=== PATIENT | male | born 1965 | race African-American/Black ===

== ENCOUNTER 2018-01-15 17:21 | Emergency (ER) | payer SELFPAY ==
[~2018-01-15] VITALS: Ht 185.4 cm; Wt 95.0 kg
[2018-01-15] MEDS ORDERED: BACTROBAN TOP (18:23)
[2018-01-15 18:35] VITALS: BP 126/71
== END 2018-01-15 18:36 | disposition home or self-care (01) | DRG 605 ==
LOC: ED 17:21
DX: S00.451A Superficial foreign body of right ear, initial encounter (principal); X58.XXXA Exposure to other specified factors, initial encounter

== ENCOUNTER 2018-10-09 03:44 | Emergency (ER) | payer SELFPAY ==
[~2018-10-09] VITALS: Ht 185.4 cm; Wt 89.5 kg
[~2018-10-09 03:44] MED LIST: BACTROBAN TOP
[2018-10-09 04:47] LABS: HEMATOCRIT 39.6 % (39.0-50.0); HEMOGLOBIN 13.2 g/dl (14.0-18.0); IMMATURE GRANULOCYTES 0.4 % (0.0-5.0); MEAN CELL VOLUME 90.2 fL CALC (80.0-100.0); MEAN CORPUSCULAR HGB 30.1 pG CALC (26.0-32.0); MEAN CORPUSCULAR HGB CONC 33.3 g/L CALC (32.0-36.0); NEUT# 5.1 thou/uL (1.82-7.42); RED BLOOD COUNT 4.39 mill/uL (4.70-6.10); RED CELL DISTRI WIDTH 13.9 % (11.5-15.5)
[2018-10-09 04:57] LABS: BARBITURATES NEGATIVE (NEGATIVE); COCAINE POSITIVE (NEGATIVE); METHADONE NEGATIVE (NEGATIVE); OXCYCODONE NEGATIVE (NEGATIVE); TETRAHYDROCANNABIONOL POSITIVE (NEGATIVE); TRICYLIC ANTIDEPRESSANTS NEGATIVE (NEGATIVE)
[2018-10-09 05:07] LABS: ALBUMIN 3.6 g/dL (3.2-5.0); ALKALINE PHOSPHATASE 97 u/l (38-126); ANION GAP 11 (6-22 (CALC)); BILIRUBIN, TOTAL 0.2 mg/dL (0.0-1.4); BUN 13 mg/dL (9-20); BUN/CREATININE RATIO 12 (12-20 (CALC)); CARBON DIOXIDE 26 mmol/l (22-30); CHLORIDE 107 mmol/l (95-108); CREATININE 1.1 mg/dL (0.7-1.3); GFR > 60 ML/MIN (>=60 (CALC)); GFR FOR AFR.AMER. > 60 ML/MIN (>=60 (CALC)); SGOT/AST 19 u/l (17-59); SODIUM 139 mmol/l (137-146); TOTAL PROTEIN 6.6 g/dL (6.3-8.2)
[2018-10-09 06:06] VITALS: BP 110/62
== END 2018-10-09 06:06 | disposition home or self-care (01) | DRG 103 ==
LOC: ED 03:44
PROVIDERS: Emergency Medicine
DX: R51 Headache (principal); F14.10 Cocaine abuse, uncomplicated; F17.210 Nicotine dependence, cigarettes, uncomplicated

== ENCOUNTER 2018-11-08 07:58 | Emergency (ER) | payer OTHER ==
[~2018-11-08] VITALS: Ht 188 cm; Wt 95.4 kg
[2018-11-08] MEDS ORDERED: VOLTAREN1%GEL TOP (09:20)
[2018-11-08 09:35] VITALS: BP 120/77
== END 2018-11-08 09:35 | disposition home or self-care (01) | DRG 563 ==
LOC: ED 07:58
DX: S39.012A Strain of muscle, fascia and tendon of lower back, initial encounter (principal); S29.012A Strain of muscle and tendon of back wall of thorax, initial encounter; S46.912A Strain of unspecified muscle, fascia and tendon at shoulder and upper arm level, left arm, initial encounter; F17.210 Nicotine dependence, cigarettes, uncomplicated; V43.52XA Car driver injured in collision with other type car in traffic accident, initial encounter

== ENCOUNTER 2019-02-17 20:00 | Emergency (ER) | payer SELFPAY ==
[~2019-02-17] VITALS: Ht 188 cm; Wt 96.8 kg
[~2019-02-17 20:00] MED LIST changes: +VOLTAREN1%GEL TOP
[2019-02-17] MEDS ORDERED: SLEEPING PILL (20:16)
[2019-02-17] MEDS ORDERED: OXYCODONE15 MG PO (20:16)
[2019-02-17] MEDS ORDERED: STEROID PACK (20:17)
[2019-02-17 20:56] LABS: HEMATOCRIT 40.2 % (39.0-50.0); HEMOGLOBIN 13.6 g/dl (14.0-18.0); IMMATURE GRANULOCYTES 0.1 % (0.0-5.0); MEAN CELL VOLUME 89.9 fL CALC (80.0-100.0); MEAN CORPUSCULAR HGB 30.4 pG CALC (26.0-32.0); MEAN CORPUSCULAR HGB CONC 33.8 g/L CALC (32.0-36.0); NEUT# 3.3 thou/uL (1.82-7.42); RED BLOOD COUNT 4.47 mill/uL (4.70-6.10); RED CELL DISTRI WIDTH 14.1 % (11.5-15.5)
[2019-02-17 21:05] LABS: ALBUMIN 3.8 g/dL (3.2-5.0); ALKALINE PHOSPHATASE 75 u/l (38-126); ANION GAP 12 (6-22 (CALC)); BUN 9 mg/dL (9-20); BUN/CREATININE RATIO 8 (12-20 (CALC)); CARBON DIOXIDE 23 mmol/l (22-30); CHLORIDE 106 mmol/l (95-108); CREATININE 1.1 mg/dL (0.7-1.3); GFR > 60 ML/MIN (>=60 (CALC)); GFR FOR AFR.AMER. > 60 ML/MIN (>=60 (CALC)); SGOT/AST 26 u/l (17-59); SODIUM 137 mmol/l (137-146)
[2019-02-17 21:19] LABS: BILIRUBIN, TOTAL 0.5 mg/dL (0.0-1.4)
[2019-02-17 22:03] LABS: URINE BILIRUBIN - DIPSTICK NEGATIVE (NEGATIVE); URINE BLOOD DIPSTICK SMALL (NEGATIVE); URINE COLOR YELLOW; URINE GLUCOSE - DIPSTICK NEGATIVE (NEGATIVE); URINE KETONE NEGATIVE (NEGATIVE); URINE LEUK ESTERASE NEGATIVE (NEGATIVE); URINE NITRITE - DIPSTICK NEGATIVE (Negative); URINE PROTEIN - DIPSTICK NEGATIVE (NEG-TRACE); URINE UROBILINOGEN - DIPSTICK 0.2 E.U./dL (0.2)
[2019-02-17 22:18] LABS: BARBITURATES NEGATIVE (NEGATIVE); COCAINE POSITIVE (NEGATIVE); METHADONE NEGATIVE (NEGATIVE); OXCYCODONE NEGATIVE (NEGATIVE); TETRAHYDROCANNABIONOL POSITIVE (NEGATIVE); TRICYLIC ANTIDEPRESSANTS NEGATIVE (NEGATIVE); URINE SQUAMOUS EPITHELIAL CELL FEW EPI/hpf (0-FEW)
[2019-02-17 22:30] VITALS: BP 132/83
[2019-02-17] MEDS ORDERED: FIORICET PO (22:38)
== END 2019-02-18 00:18 | disposition home or self-care (01) | DRG 103 ==
LOC: ED 20:00
PROVIDERS: Family Medicine
DX: R51 Headache (principal); F14.10 Cocaine abuse, uncomplicated; F12.10 Cannabis abuse, uncomplicated

== ENCOUNTER 2019-09-17 14:11 | Emergency (ER) | payer OTHER ==
[~2019-09-17 14:11] MED LIST changes: +FIORICET PO; +OXYCODONE15 MG PO; +SLEEPING PILL; +STEROID PACK
[2019-09-17 15:55] VITALS: BP 126/77
== END 2019-09-17 15:55 | disposition home or self-care (01) | DRG 914 ==
LOC: ED 14:11
DX: S09.90XA Unspecified injury of head, initial encounter (principal); M54.5 Low back pain; G89.29 Other chronic pain; F17.200 Nicotine dependence, unspecified, uncomplicated; V89.2XXA Person injured in unspecified motor-vehicle accident, traffic, initial encounter
CPT/HCPCS: L0120

== ENCOUNTER 2020-08-04 | Emergency (ER) | payer SELFPAY ==
[2020-08-04] MEDS ORDERED: FLEXERIL5 MG PO (11:47)
[2020-08-04] MEDS ORDERED: VOLTAREN1%GEL TOP (12:02)
== END 2020-08-04 12:31 | disposition home or self-care (01) | DRG 552 ==
DX: M54.5 Low back pain (principal); F17.200 Nicotine dependence, unspecified, uncomplicated; Z98.1 Arthrodesis status

== ENCOUNTER 2020-08-08 12:01 | Emergency (ER) | payer SELFPAY ==
[~2020-08-08 12:01] MED LIST changes: +FLEXERIL5 MG PO
[2020-08-08] MEDS ORDERED: MEDDOSEPAK PO (13:02)
[2020-08-08 13:39] VITALS: BP 128/81
== END 2020-08-08 13:39 | disposition home or self-care (01) | DRG 552 ==
LOC: ED 12:01
DX: M54.5 Low back pain (principal); G89.29 Other chronic pain; F17.200 Nicotine dependence, unspecified, uncomplicated; T40.2X6A Underdosing of other opioids, initial encounter; T39.316A Underdosing of propionic acid derivatives, initial encounter; Z91.128 Patient's intentional underdosing of medication regimen for other reason; Z98.1 Arthrodesis status

== ENCOUNTER 2021-06-11 05:50 | Emergency (ER) | payer OTHER ==
[~2021-06-11] VITALS: Ht 185.4 cm; Wt 95.0 kg
[~2021-06-11 05:50] MED LIST changes: +MEDDOSEPAK PO
[2021-06-11 05:55] VITALS: BP 135/98
[2021-06-11] MEDS ORDERED: OXYCODONE30 MG PO (06:19)
== END 2021-06-11 08:00 | disposition home or self-care (01) | DRG 556 ==
LOC: ED 05:50
DX: M25.511 Pain in right shoulder (principal); F17.200 Nicotine dependence, unspecified, uncomplicated

== ENCOUNTER 2021-06-18 04:46 | Emergency (ER) | payer OTHER ==
[~2021-06-18] VITALS: Ht 185.4 cm; Wt 97.0 kg
[~2021-06-18 04:46] MED LIST changes: +OXYCODONE30 MG PO
[2021-06-18 04:55] VITALS: BP 144/83
[2021-06-18] MEDS ORDERED: VOLTAREN75 MG PO (05:08)
== END 2021-06-18 05:25 | disposition home or self-care (01) | DRG 556 ==
LOC: ED 04:46
DX: M25.511 Pain in right shoulder (principal); F17.200 Nicotine dependence, unspecified, uncomplicated

== ENCOUNTER 2021-10-14 18:36 | Emergency (ER) | payer SELFPAY ==
[~2021-10-14] VITALS: Ht 185.4 cm; Wt 99.5 kg
[~2021-10-14 18:36] MED LIST changes: +VOLTAREN75 MG PO
[2021-10-14 19:26] VITALS: BP 130/86
[2021-10-14] MEDS ORDERED: NAPROXEN500 MG PO (20:07)
== END 2021-10-14 20:48 | disposition home or self-care (01) | DRG 563 ==
LOC: ED 18:36
DX: S63.91XA Sprain of unspecified part of right wrist and hand, initial encounter (principal); F17.200 Nicotine dependence, unspecified, uncomplicated; W01.0XXA Fall on same level from slipping, tripping and stumbling without subsequent striking against object, initial encounter; Y92.512 Supermarket, store or market as the place of occurrence of the external cause

== ENCOUNTER 2022-05-21 08:57 | Emergency (ER) | payer SELFPAY ==
[~2022-05-21] VITALS: Ht 185.4 cm; Wt 98.9 kg
[~2022-05-21 08:57] MED LIST changes: +NAPROXEN500 MG PO
[2022-05-21] MEDS ORDERED: LOSARTAN POTASS25 MG PO (09:10)
[2022-05-21 11:28] VITALS: BP 142/87
== END 2022-05-21 11:32 | disposition home or self-care (01) | DRG 305 ==
LOC: ED 08:57
DX: I10 Essential (primary) hypertension (principal); F17.200 Nicotine dependence, unspecified, uncomplicated

== ENCOUNTER 2024-06-18 08:05 | Emergency (ER) | payer OTHER ==
[~2024-06-18] VITALS: Ht 185.4 cm; Wt 98.0 kg
[~2024-06-18 08:05] MED LIST changes: +FIORICET 50-3001 CAP PO; +LOSARTAN POTASS25 MG PO; +OXYCODONE20 M1 PO; +ZOFRAN4 MG/TAB PO
[2024-06-18 08:12] VITALS: BP 147/91
[2024-06-18] MEDS ORDERED: LOSARTAN Potassium 50 MG/TAB PO ONE (08:30)
[2024-06-18] MEDS ORDERED: LOSARTAN Potassium 25 MG/TAB PO ONE (08:35)
[2024-06-18 08:41] VITALS: BP 149/102
[2024-06-18 08:45] LABS: BASO% 0.1 % (0-3); EOS% 3.8 % (0-8); HEMATOCRIT 43.8 % (39.0-50.0); HEMOGLOBIN 15.1 g/dl (14.0-18.0); IMMATURE GRANULOCYTES 0.1 % (0.0-5.0); MEAN CELL VOLUME 89.4 fL CALC (80.0-100.0); MEAN CORPUSCULAR HGB 30.8 pG CALC (26.0-32.0); MEAN CORPUSCULAR HGB CONC 34.5 g/dL CAL (32.0-36.0); NEUT# 2.73 thou/uL (1.82-7.42); RED BLOOD COUNT 4.9 mill/uL (4.70-6.10); RED CELL DISTRI WIDTH 13.3 % (11.5-15.5)
[2024-06-18 09:00] LABS: ALBUMIN 4.2 g/dL (3.2-5.0); ALKALINE PHOSPHATASE 60 u/l (38-126); BUN 14 mg/dL (9-20); BUN/CREATININE RATIO 13 (12-20 (CALC)); CARBON DIOXIDE 22 mmol/l (22-30); CHLORIDE 107 mmol/l (95-108); CREATININE 1.1 mg/dL (0.7-1.3); ESTIMATED GFR 78 ML/MIN (>=90 (CALC)); SGOT/AST 46 u/l (17-59); SODIUM 137 mmol/l (137-146); TOTAL PROTEIN 7.7 g/dL (6.3-8.2)
[2024-06-18 09:01] VITALS: BP 145/95
[2024-06-18 09:01] LABS: ANION GAP 13 (6-22 (CALC)); BILIRUBIN, TOTAL 0.9 mg/dL (0.2-1.3); POTASSIUM 4.7 mmol/l (3.5-5.1)
[2024-06-18] MEDS ORDERED: cloNIDine HCL 0.1 MG/TAB PO ONE (09:25)
[2024-06-18] MEDS ORDERED: CLONIDINE0.1 MG PO (09:30)
[2024-06-18 09:31] VITALS: BP 144/96
[2024-06-18 09:58] VITALS: BP 145/95
== END 2024-06-18 09:58 | disposition home or self-care (01) | DRG 305 ==
LOC: ED 08:05
PROVIDERS: Family Medicine
DX: I10 Essential (primary) hypertension (principal); F17.200 Nicotine dependence, unspecified, uncomplicated; M54.50 Low back pain, unspecified; G89.29 Other chronic pain